=== PATIENT | male | born 1970 | race Caucasian/White ===

== ENCOUNTER 2020-05-09 12:39 | Emergency (ER) | payer OTHER, SELFPAY ==
[2020-05-09 12:40] VITALS: BP 130/102; PULSE 81; RESP 18; TEMP 36.2; O2SAT 99; BMI 28.8
--- NOTE | 2020-05-09 13:06 | CT_ITS ---
STUDY: CT ABDOMEN AND PELVIS WITHOUT CONTRAST REASON FOR EXAM: Male, 49 years old. RIGHT FLANK PAIN X A COUPLE OF DAYS. RADIATION DOSAGE (If Supplied By Facility): CTDIvol = ( 13.46 ) mGy, DLP = ( 742.93 ) mGycm TECHNIQUE: Transaxial images were obtained from the dome of the diaphragm to the symphysis pubis without oral contrast, and without intravenous contrast. Sagittal and coronal images were reconstructed. Individualized dose optimization techniques were used for this CT. COMPARISON: None. FINDINGS: The visualized lung bases are unremarkable. The visualized portions of the heart are within normal limits. There is decreased attenuation of the liver consistent with steatosis. Normal gallbladder and extrahepatic biliary system. Normal spleen. Normal pancreas. Normal bilateral adrenal glands. Mild degree of right hydronephrosis due to a 4.8 mm calculus in the proximal portion of the right ureter. There is evidence of a 7.2 mm calculus in the lower pole calyx of the right kidney.. There is evidence of right perinephric stranding and periureteric stranding. Normal left kidney. There is a small hiatal hernia. Normal small intestine. Normal colon. The appendix is visualized and appears normal. Normal abdominal aorta. Normal inferior vena cava. Normal retroperitoneum. Normal urinary bladder. There are prostatic calcifications. There is a small umbilical hernia containing fat. Mild anterior spondylosis at the L3-L4 level. Mild degree of disc space narrowing at the L5-S1 level. CT/Abdomen/Pelvis without Cont IMPRESSION: 4.8 mm calculus in the proximal portion of the right ureter causing mild degree of right hydronephrosis and perinephric nephric stranding. This evidence of a 7.2 mm conquest in the lower pole calyx of the right kidney. Fatty infiltration of the liver. Electronically Signed: Thaddeus Mejia, at 13:52 EST , Service support ,
--- NOTE | 2020-05-09 13:07 | ED.DCSUM_ITS ---
- ER Visit Summary Date of Service: 05/09/20 Chief Complaint: Right flank pain History of Present Illness: The patient is a 49 M who presents with right flank pain that has been waxing and waning over the past week. Patient states it is gotten worse since last night. Patient describes the pain as sharp. Patient states the pain is over the right flank and radiates into his right abdomen. Patient states it is worse with certain positions. Patient states he has been unable to find a position of comfort since last night. Patient denies any dysuria or hematuria. Patient denies any nausea or vomiting. Patient admits to subjective fevers. Physical Examination: Vital signs are stable. Patient is afebrile. Patient is in no acute distress. Oral mucosa is pink and moist. Neck is supple. Trachea is midline. There is no JVD. Heart was regular rate and rhythm. Lungs are c lear and equal bilaterally. Abdomen is soft. Bowel sounds are normal. There is some mild right upper and right lower quadrant tenderness. There is also some mild right CVA tenderness. There is no rebound or guarding noted. Cranial nerves II through XII are intact. There are no focal motor or sensory deficits. Test Results: CBC and comprehensive metabolic profile were obtained. Creatinine was slightly elevated at 1.66. There are no prior results available for comparison. The remaining labs were within normal limits. Patient requested a COVID-19 test. A rapid antigen test was obtained and was positive. CT scan of the abdomen and pelvis was obtained. There is a 4.8 mm calculus in the right proximal ureter with hydronephrosis. This was interpreted by the radiologist and reviewed by myself. Urinalysis is ordered and is pending. Emergency Department Course and Treatment: Patient was given IV fluids and Toradol here. Patient is feeling better on reevaluation. Care of the patient was turned over to the oncoming physician pending urinalysis results. If there is a urinary tract infection patient will need antibiotics for that. Patient was instructed to quarantine for 10 days since his onset of symptoms. Patient was instructed to drink plenty of fluids. Patient was given a prescription for Percocet. Patient was instructed to follow-up with his primary care physician in 5 to 7 days. Patient was also given a referral for urology follow-up. Patient understood and was agreeable with the plan. All questions were answered. Disposition: Discharge home Impression: 1. Right ureteral lithiasis 2. COVID-19 This note was generated with [employer] dictation software. It may contain incorrect words, spelling, and punctuation that were not noted in review of the chart prior to signing ED Disposition - Plan for ED Patient: Disposition: Home or Assisted Living Diagnosis: Right ureteral calculus, COVID-19 Instructions: Coronavirus Disease 2019 (COVID-19): Overview, Coronavirus Disease 2019 (COVID-19): Caring for Yourself or Others, ED Kidney Stone w/ Colic Prescriptions: Oxycodone HCl/Acetaminophen [Percocet 5/325] 1 tab PO Q6H PRN PRN 3 Days #12 tab PRN Reason: Pain Prescription Printed Referrals: NOT,DEFINED [NON-STAFF] - 5-7 Days Lowell Beauchamp MD [STAFF PHYSICIAN] - 5-7 Days
[2020-05-09] MEDS: Ketorolac 30 MG/ML Syringe IV (13:26)
[2020-05-09] MEDS: 0.9% Normal Saline 1,000 ML 1000 ML IV (13:27)
[2020-05-09 13:37] LABS: Absolute Lymphocyte Count 1.19 X10^3/uL (0.83-4.51); Absolute Neutrophil Count 4.9 X10^3/uL (2.0-7.7); Basophil# 0.03 X10^3/uL; Basophil% 0.4 % (0-1); Eosinophil# 0.06 X10^3/uL; Eosinophils% 0.9 % (0-5); Hematocrit 48.6 % (40-54); Hemoglobin 16.5 g/dL (13.0-16.5); Lymphocyte # 1.19 X10^3/ul (4.0); Lymphocyte % 17.2 % (19-41); Mean Corpuscular Hgb 28.8 pg (27.0-32.0); Mean Platelet Vol. 9.7 fl (6.2-12.0); Monocyte# 0.71 X10^3/uL; Monocyte% 10.2 % (0-10); NRBC Flagged by Analyzer 0 % (0-5); Neutrophil # 4.92 X10^3/uL (2.7-7.7); Platelet Count 197 K/mm3 (150-450); RBC Distribution Width CV 12.2 % (11.6-14.6); RBC Distribution Width SD 37.6 fl (35.1-43.9); Red Blood Count 5.72 M/mm3 (4.6-6.2); White Blood Count 6.9 K/mm3 (4.4-11.0)
[2020-05-09 13:53] LABS: ALB/GLOB Ratio 1.1 RATIO (0.9-2.4); AST(SGOT) 40 U/L (15-37); Alanine Aminotransfer ALT/SGPT 86 U/L (16-61); Albumin, Serum 3.9 g/dL (3.2-5.0); Alkaline Phosphatase 87 U/L (45-117); Anion Gap 4 (5-15); BUN 13 mg/dL (7-18); BUN/Creat Ratio 7.8 RATIO (10-20); Calcium,Total 8.9 mg/dL (8.5-10.1); Chloride 108 mmol/L (98-107); Creatinine, Serum 1.66 mg/dL (0.70-1.30); EST Glomerular Filtration Rate 47 mL/min (>60); Est Glom Filt Rate - Afr Amer 57 mL/min (>60); Estimated Creatinine Clearance 63.96 ml/min; Globulin 3.7 g/dL (2.2-4.2); Glucose 98 mg/dL (74-106); Lipase 75 U/L (73-393); Protein, Total 7.6 g/dL (6.4-8.2); Sodium Level 142 mmol/L (136-145)
[2020-05-09 14:48] LABS: Bacteria 0 SEEN /hpf (None Seen)
[2020-05-09 15:36] LABS: Color, Urine Yellow (Yellow); Glucose, Dipstick Normal (Normal); Ketone-Dipstick Negative (Negative); Leukocyte Esterase-Dipstick Negative /ul (Negative); Nitrite-Dipstick Negative (Negative); Occult Blood-Urine Negative /ul (Negative); Protein-Dipstick 30 mg/dl (Negative); Specific Gravity, Urine 1.015 (1.002-1.030); Urine Bilirubin Dipstick Negative (Negative); Urine Clarity Sl. Cloudy (Clear); Urine Urobilinogen 1 mg/dl (Normal); Urine pH 6.5 (5.0 - 8.0)
[2020-05-09 15:58] LABS: Mucous, Urine 2+ /hpf (<or=2+); Red Blood Cells-Urine 0-5 SEEN /hpf (0-5); Squamous Epithelial Cells - UA 0-5 SEEN /hpf (0-5); White Blood Cells 0-5 SEEN /hpf (0-5)
[2020-05-09 16:30] VITALS: BP 148/70; PULSE 73; RESP 15; O2SAT 97
== END 2020-05-09 16:30 | disposition home or self-care (01) ==
PROVIDERS: Emergency Provider Emergency Medicine
DX: N13.2 Hydronephrosis with renal and ureteral calculous obstruction (principal); U07.1 COVID-19
CPT/HCPCS: 74176; 80053; 81001; 83690; 85025; 87426; 96361; 96374; 99285; J7030; A4216

== ENCOUNTER → 2020-06-01 15:02 | Outpatient (CLI) | payer OTHER, SELFPAY ==
[2020-05-09 12:40] VITALS: BMI 28.8
--- NOTE | 2020-06-01 15:10 | RAD_ITS ---
STUDY: X-RAY - ABDOMEN/PELVIS REASON FOR EXAM: Male, 49 years old. follow up, right kidney stones TECHNIQUE: KUB COMPARISON: CT of the abdomen and pelvis 05/09/2020 FINDINGS: Normal visualized lung bases. There is an unremarkable bowel gas pattern. There is no demonstrated free abdominal air. The visualized liver, spleen and kidneys are grossly normal in size and morphology. There is a tiny calcification in the right upper quadrant consistent with renal calculus. There is also a tiny calcification in the right of the L3 vertebral body which may be consistent with ureteral calculus. Lumbar spine demonstrates mild degenerative change. RAD/Abdomen Single View IMPRESSION: Right nephrolithiasis and tiny calculus within the mid right ureter. No significant changes since prior exam Electronically Signed: Chidi Gomez MD at 20:46 EST , Service support ,
== END ==
PROVIDERS: PCP Family Medicine; Referring Provider Urology; Visit Provider Urology
DX: N20.0 Calculus of kidney (principal)
CPT/HCPCS: 74018

== ENCOUNTER → 2020-06-16 17:13 | Outpatient (CLI) | payer OTHER, SELFPAY | PROVIDERS: PCP Family Medicine; Referring Provider Urology; Visit Provider Urology | DX: Z11.59 Encounter for screening for other viral diseases (principal) | CPT/HCPCS: 87635; C9803; U0005; U0003 ==

== ENCOUNTER → 2020-06-26 | Outpatient (CLI) | payer OTHER, SELFPAY ==
--- NOTE | 2020-06-23 15:00 | CALC_PTH ---
PATIENT: CATRACHITO AU LOC: [facility] U#:[id number] AGE/SX: 49/M ROOM: RE06/26/[address]: Dr. Lowell Beauchamp MD : [id number] BED: DIS: 06/26/2020 SPEC #: [id number] RECD: 06/26/20 14:51 STATUS: GORAN REDavid #: [id number] [place]: 06/23/20 15:[address]: Lowell Beauchamp DEPT: SURGICAL PATHOLOGY RECD BY: Joselyn Hudson ENTERED: 06/27/20 07:16 SP TYPE: Calculi OTHR DR: Dr. Philipp Richmond MD [facility] Tissues: CALCULI Procedures: Surgery Specimen Level I HEADER OPERATION: Right extracorporeal shockwave lithotripsy PRE-OP DIAGNOSIS: Calculus of kidney with calculus of ureter TISSUE SUBMITTED: Kidney stone GROSS DIAGNOSIS A fragment of stone, clinically kidney stone. SJ:mahad 06/27/20 COMMENT If chemical analysis is requested on this specimen, please notify the laboratory. GROSS DESCRIPTION Received is one container labeled with the patient's name and not further designated. The specimen consists of a fragment of tillman-brown stone measuring 0.5 x 0.3 x 0.2 cm. The entire specimen is saved if stone analysis is requested. / SJ:mahad 06/27/20 CPT: 26149
== END | disposition home or self-care (01) ==
LOC: LABSPEC 15:20
PROVIDERS: PCP Family Medicine; Referring Provider Urology; Visit Provider Urology
DX: N20.0 Calculus of kidney (principal)
CPT/HCPCS: 88300

== ENCOUNTER → 2020-07-13 15:33 | Outpatient (CLI) | payer OTHER, SELFPAY ==
--- NOTE | 2020-07-13 15:55 | RAD_ITS ---
STUDY: X-RAY - ABDOMEN/PELVIS REASON FOR EXAM: Male, 49 years old. KIDNEY STONE right side. post TECHNIQUE: Single AP view of the abdomen / pelvis. COMPARISON: None. FINDINGS: Lung base is not included in the [id number]. There is an unremarkable bowel gas pattern. There is no demonstrated free abdominal air. The visualized liver, spleen and kidneys are grossly normal in size and morphology. Normal soft tissue structures. Normal visualized osseous structures. RAD/Abdomen Single View IMPRESSION: Normal x-ray examination of the abdomen and pelvis. Electronically Signed: Jessica Anderson MD at 1:19 EST , Service support ,
== END ==
PROVIDERS: PCP Family Medicine; Referring Provider Urology; Visit Provider Urology
DX: N20.0 Calculus of kidney (principal)
CPT/HCPCS: 74018